=== PATIENT | female | born 1980 | race African-American/Black ===

== ENCOUNTER 2017-07-25 17:27 | Emergency (ER) | payer OTHER ==
[~2017-07-25] VITALS: Ht 180.3 cm; Wt 116.1 kg
[~2017-07-25 17:27] MED LIST: ALLEGRA ALLERGY60 MG PO; ALLERGY SHOT; AUGMENTIN 875875 MG PO; BENADRYL25 MG; BENADRYL25 MG PO; BLOOD PRESSURE; CIPROFLOXACIN500 M1 PO; CLARINEX5 MG PO; CLARITIN10 MG PO; FLAGYL500 M1 PO; FLAGYL500 MG PO; FLEXERIL PO; FLONASE 0.05%50 MCG NASAL; FLONASE 0.05%50 MCG NS; HYDROCHLOROTHIA25 M2 GT; IBUPROFEN 600600 M1 PO; IRON325; IRON325 PO; KEFLEX500 MG PO; LISINOPRIL10 MG PO; MACROBID 100 M100 M1 PO; MEDROLDOSEPACK PO; MOBIC7.5 MG PO; NORCO 5-325 TA1 EACH PO; PERCOCET 5-3251 EACH PO; PHENERGAN 25 MG25 M1 PO; PREDNISONE 20 M20 MG PO; PRINIVIL10 MG PO; PROMETHAZINE-C120 ML PO; PROMS25 WY RECTAL; TEGRETOL XR200 MG PO; TRAMADOL 50 MG50 MG PO; VALIUM5 MG PO; XANAX 0.25 MG0.25 MG PO; ZOFRAN ODT4 MG PO; ZPAK PO
[2017-07-25] MEDS ORDERED: IBUPROFEN 600600 M1 PO (17:48)
[2017-07-25] MEDS ORDERED: NORCO 5-325 TA1 EACH PO (18:14)
== END 2017-07-25 18:49 | disposition home or self-care (01) ==
LOC: ER 17:27
DX: M25.572 Pain in left ankle and joints of left foot (principal); I10 Essential (primary) hypertension

== ENCOUNTER 2017-11-02 02:15 | Emergency (ER) | payer OTHER ==
[~2017-11-02] VITALS: Ht 180.3 cm; Wt 113.4 kg
--- NOTE | ~2017-11-02 | EKG ---
[address] [address] ELECTROCARDIOGRAM REPORT Name: REGAN SAAVEDRA Room [facility]: [facility] [id number] Admission: 11/02/17 Attend Phys: Discharge: 11/02/17 Date of : 76 Report #: [id number] THIS REPORT FOR: //name// [facility] ED Test Date: 2017-11-02 Test Time: 02:23:48 Pat Name: REGAN SAAVEDRA Department: Room: Gender: F Float Phlebotomist: TAYLER : 1980 Requested By: Camille Alamo Order Number: [id number] MD: Phil Zacarias Measurements Intervals [facility] Rate: 115 P: 59 DE: 142 QRS: 64 QRSD: 87 T: 11 QT: 332 QTc: 460 Interpretive Statements Sinus tachycardia Compared to ECG 05/25/2017 20:26:32 No significant changes Electronically Signed On 11-02-2017 17:26:26 [employer] by Phil Zacarias [email or web address] <ELECTRONICALLY SIGNED> By: Phil Zacarias MD 11/02/17 1726 0223 2 Phil Zacarias MD /GABRIEL
[2017-11-02 02:47] LABS: ANION GAP 13 mmol/L (7-16); BUN 9 mg/dL (7-18); CALCIUM 8.2 mg/dL (8.5-10.1); CHLORIDE 106 mmol/L (98-107); CO2 23 mmol/L (21-32); GLUCOSE 111 mg/dL (74-106); POTASSIUM 3.9 mmol/L (3.5-5.1); SODIUM 142 mmol/L (136-145)
[2017-11-02 02:49] LABS: URINE BILIRUBIN NEGATIVE (Negative); URINE BLOOD 1+ (Negative); URINE CLARITY CLEAR; URINE COLOR YELLOW; URINE GLUCOSE-RANDOM* NEGATIVE (Negative); URINE KETONES NEGATIVE (Negative); URINE LEUKOCYTES-REFLEX NEGATIVE (Negative); URINE NITRITE-REFLEX NEGATIVE (Negative); URINE PROTEIN (DIPSTICK) NEGATIVE (Negative); URINE SPECIFIC GRAVITY 1.015 (1.005-1.035); URINE UROBILINOGEN 0.2 E.U./dl (0.2-1.0)
[2017-11-02 02:53] LABS: ALBUMIN 3.5 g/dL (3.4-5.0); DIRECT BILIRUBIN < 0.1 mg/dL (<0.1-0.3); LIPASE 151 U/L (73-393); SGOT 21 U/L (15-37); SGPT 23 U/L (30-65); TOTAL BILIRUBIN 0.2 mg/dL (<0.1-1.0); TOTAL PROTEIN 6.8 g/dL (6.4-8.2)
[2017-11-02 03:00] LABS: WBC 9.6 thou/uL (4.0-11.0)
[2017-11-02 03:02] LABS: ABSOLUTE NEUTROPHILS 6.8 thou/uL (1.4-8.2); BASOPHILS 1.2 % (0.0-2.0); EOSINOPHILS 1.7 % (0.0-3.0); LYMPHOCYTES 17.8 % (24.0-44.0); MCH 16.6 pg (26.0-34.0); MCHC 30.9 g/dL (28.0-37.0); MCV 53.8 fL (80.0-100.0); MONOCYTES 7.9 % (1.0-8.0); POLYS 71.4 % (36.0-66.0); RBC 3.59 mil/uL (4.20-5.00); RDW 23.5 % (10.5-14.5)
[2017-11-02 03:03] LABS: CASTS None Seen /LPF (None Seen); MUCUS None Seen strn/LPF (None Seen); SQUAMOUS 0-3 Few /LPF (0-3); URINE RBC 0-2 Rare /HPF (0-2); URINE WBC-REFLEX 0-5 Rare /HPF (0-5)
[2017-11-02 03:04] LABS: BACTERIA-REFLEX 1-9 Few /HPF (None Seen); CRYSTALS None Seen /LPF (None Seen)
[2017-11-02 03:08] LABS: HEMATOCRIT 19.3 % (37.0-47.0)
[2017-11-02 03:40] LABS: ANISOCYTOSIS 3+; LARGE PLATELETS SEVERAL; OVALOCYTES 2+; PLATELET COUNT 175 thou/uL (150-400); PLATELET ESTIMATE NORMAL; POIKILOCYTOSIS 3+; TARGET CELLS 1+; TEARDROPS 1+
[2017-11-02 03:41] LABS: HYPOCHROMASIA 1+; MACROCYTES FEW; MICROCYTES 3+
[2017-11-02 04:56] VITALS: BP 156/87
[2018-02-17] MEDS ORDERED: FLEXERIL PO (08:59)
== END 2017-11-02 05:04 | disposition home or self-care (01) ==
LOC: ER 02:15
PROVIDERS: Emergency Medicine
DX: N93.8 Other specified abnormal uterine and vaginal bleeding (principal); R10.9 Unspecified abdominal pain; D64.9 Anemia, unspecified; D21.9 Benign neoplasm of connective and other soft tissue, unspecified; I10 Essential (primary) hypertension; Z98.890 Other specified postprocedural states

== ENCOUNTER 2018-05-11 18:05 | Emergency (ER) | payer OTHER ==
[~2018-05-11] VITALS: Ht 180.3 cm; Wt 90.7 kg
[2018-05-11] MEDS ORDERED: NORFLEX100 MG PO (20:31)
[2018-05-11] MEDS ORDERED: MOBIC7.5 MG PO (20:31)
== END 2018-05-11 20:39 | disposition home or self-care (01) ==
LOC: ER 18:05
DX: S39.012A Strain of muscle, fascia and tendon of lower back, initial encounter (principal); S20.211A Contusion of right front wall of thorax, initial encounter; I10 Essential (primary) hypertension; Z98.890 Other specified postprocedural states; V89.2XXA Person injured in unspecified motor-vehicle accident, traffic, initial encounter; Y93.89 Activity, other specified; Y92.89 Other specified places as the place of occurrence of the external cause; Y99.8 Other external cause status

== ENCOUNTER 2019-04-02 21:09 | Inpatient (IN) | payer OTHER ==
[~2019-04-02] VITALS: Ht 180.3 cm; Wt 100.7 kg
[2019-04-02 21:25] LABS: URINE BILIRUBIN NEGATIVE (Negative); URINE BLOOD NEGATIVE (Negative); URINE CLARITY CLEAR; URINE COLOR YELLOW; URINE GLUCOSE-RANDOM* NEGATIVE (Negative); URINE KETONES NEGATIVE (Negative); URINE LEUKOCYTES-REFLEX NEGATIVE (Negative); URINE NITRITE-REFLEX NEGATIVE (Negative); URINE PROTEIN (DIPSTICK) NEGATIVE (Negative); URINE SPECIFIC GRAVITY 1.015 (1.005-1.035); URINE UROBILINOGEN 0.2 E.U./dl (0.2-1.0)
[2019-04-02 21:33] VITALS: BP 152/80
[2019-04-02 22:12] LABS: MCH 15.7 pg (26.0-34.0)
[2019-04-02 22:14] LABS: MCHC 28.9 g/dL (28.0-37.0); MCV 54.4 fL (80.0-100.0); PLATELET COUNT 436 thou/uL (150-400); RBC 3.52 mil/uL (4.20-5.00); RDW 31.7 % (10.5-14.5); WBC 9.5 thou/uL (4.0-11.0)
[2019-04-02 22:19] LABS: CALCIUM 8.5 mg/dL (8.5-10.1); CREATININE 0.9 mg/dL (0.6-1.0); POTASSIUM 3.2 mmol/L (3.5-5.1)
[2019-04-02 22:22] LABS: HEMATOCRIT 19.1 % (37.0-47.0); HEMOGLOBIN 5.5 gm/dL (12.0-15.0)
[2019-04-02 22:25] LABS: ALBUMIN 3.5 g/dL (3.4-5.0); TOTAL BILIRUBIN 0.4 mg/dL (<0.1-1.0); TOTAL PROTEIN 6.9 g/dL (6.4-8.2)
[2019-04-02 22:51] LABS: ABSOLUTE NEUTROPHILS 7.3 thou/uL (1.4-8.2)
[2019-04-02 22:53] LABS: ANISOCYTOSIS 3+; HYPOCHROMASIA 3+; MICROCYTES 3+; PLATELET ESTIMATE INCREASED; POIKILOCYTOSIS 1+; POLYCHROMASIA 1+
[2019-04-03] VITALS (8 sets, daily range): BP systolic 102–155; BP diastolic 63–99
[2019-04-03 01:24] LABS: % SATURATION 3 % (20-39); IRON 12 ug/dL (50-170); TIBC 437 ug/dL (250-450)
--- NOTE | 2019-04-03 06:28 | NUR ---
Arrived from ER around 0215 with a unit of PRBC infusing. First unit completed without any reaction. Second unit started around 0555. Tylenol given for abdominal pain with osme relief. Slept some but not much. No nausea or vomiting. No active bleeding. Up ad jarrod in room with steady gait. Will continue to monitor.
[2019-04-03 11:29] LABS: HEMOGLOBIN 7.3 gm/dL (12.0-15.0); MCH 18.3 pg (26.0-34.0); MCHC 30.4 g/dL (28.0-37.0); MCV 60.3 fL (80.0-100.0); PLATELET COUNT 421 thou/uL (150-400); RBC 3.98 mil/uL (4.20-5.00); RDW 38.4 % (10.5-14.5); WBC 9.3 thou/uL (4.0-11.0)
[2019-04-03 12:14] LABS: ABSOLUTE NEUTROPHILS 7.3 thou/uL (1.4-8.2); ANISOCYTOSIS 2+; PLATELET ESTIMATE NORMAL
[2019-04-03 12:15] LABS: MICROCYTES 2+
[2019-04-03 12:20] LABS: HYPOCHROMASIA 2+; POLYCHROMASIA 1+
--- NOTE | 2019-04-03 13:08 | NUR ---
assumed care of pt at 0700. pt has been awake, a&o x4. pt has complained of generalized abdominal pain, rating it an 8/10. pt unable to articulate description of pain, what exacerbates, or what relieves it. pt has denied n/v. pt has been agitated at times but staff has been able to redirect. pt received one unit of blood this morning without complications. hgb has improved with labs drawn late this morning. pt is progressing toward poc goals. will continue to monitor and assess.
--- NOTE | 2019-04-03 13:53 | NUR ---
pt to dc home. iv's and tele have been dc'd. pt's belongings gathered and sent with pt. pt escorted off of unit in w/c to private vehicle via volunteer transport.
--- NOTE | 2019-04-03 16:00 | NUR ---
Received consult due to pt not having health insurance. SW reviewed chart and spoke with nursing and attending physician. Pt was admitted from home due to anemia. Hgb: 5.5. Pt is medically stable for discharge home today following blood transfusion. Pt does have [place]-Medicaid. Pt to follow up with her COMPUTING CONSULTANT after discharge. Pt left prior to SW visit. No additional SW needs identified at this time, but is available to assist should needs arise.
== END 2019-04-03 14:06 | disposition home or self-care (01) | DRG 812 ==
LOC: ER 21:09 → EROBS 04-03 01:02 → 3W 04-03 01:02 → ENTRNSPT 04-03 13:35 → EDTRNSPTSTS 04-03 13:45 → 3W 04-03 14:06
PROVIDERS: Emergency Medicine; ADMIT Hospitalist
PROC: 30233N1 Transfusion of Nonautologous Red Blood Cells into Peripheral Vein, Percutaneous Approach (ICD-10-PCS; principal; 2019-04-03)
DX: D64.9 Anemia, unspecified (principal); I10 Essential (primary) hypertension; Z98.891 History of uterine scar from previous surgery
CPT/HCPCS: 10779